=== PATIENT | female | born 1950 | race Caucasian/White ===

== ENCOUNTER 2020-07-05 14:54 | Inpatient (IN) | payer MEDICARE, BC ==
[~2020-07-05] VITALS: Ht 170.2 cm; Wt 66.2 kg
[2020-07-05] MEDS ORDERED: METOCLOPRAMIDE HCL 10 MG/2ML VIAL IV ONE (15:30)
[2020-07-05 15:36] LABS: BASOPHILS # (AUTO) 0.1 (0.0-0.1); BASOPHILS % 0.3 % (0.0-1.0); EOSINOPHILS # (AUTO) 0.3 (0.0-0.4); EOSINOPHILS % 1.6 % (0.0-6.0); HEMATOCRIT 27.7 % (34.2-44.1); HEMOGLOBIN 8.2 g/dL (12.0-16.0); LYMPHOCYTES # (AUTO) 1.6 (1.0-3.2); LYMPHOCYTES % 9.5 % (18.0-39.1); MEAN CORPUSCULAR HEMOGLOBIN 30.4 pg (28-32); MEAN CORPUSCULAR HGB CONC 29.6 g/dL (31-35); MEAN CORPUSCULAR VOLUME 102.6 fL (81-99); MONOCYTES # (AUTO) 1.9 (0.2-0.8); MONOCYTES % 11.7 % (4.4-11.3); NEUTROPHILS # (AUTO) 12.5 (2.1-6.9); NEUTROPHILS % 75.7 % (38.7-80.0); PLATELET COUNT 366 x10e3/uL (140-360)
[2020-07-05 16:15] LABS: ALBUMIN 1.9 g/dL (3.5-5.0); ALBUMIN/GLOBULIN RATIO 0.4 (0.8-2.0); ANION GAP 11.1 mmol/L (8-16); CALCIUM 8.2 mg/dL (8.4-10.2); CREATININE, SERUM 1.26 mg/dL (0.57-1.11); POTASSIUM 4.1 mmol/L (3.5-5.1)
[2020-07-05] MEDS: SODIUM CHLORIDE 0.9% 1000ML 1,000 ML IV SCH (16:25)
[2020-07-05] MEDS ORDERED: IOPAMIDOL 370 MG/ML 200 ML INFUS..BTL INJ ONE (16:36)
[2020-07-05] MEDS ORDERED: SODIUM CHLORIDE 0.9% 50ML 50 ML ONE ×2 (16:36→19:37)
[2020-07-05] MEDS ORDERED: AMIODARONE HCL200 MG (17:31)
[2020-07-05] MEDS ORDERED: ELIQUIS5 MG (17:31)
[2020-07-05] MEDS ORDERED: ASPIRIN EC81 MG PO (17:32)
[2020-07-05] MEDS ORDERED: LIPITOR20 MG PO (17:32)
[2020-07-05] MEDS ORDERED: EZETIMIBE10 MG (17:33)
[2020-07-05] MEDS ORDERED: CALCIUM CARBON300 MG (17:33)
[2020-07-05] MEDS ORDERED: SIMETHICONE80 MG PO (17:34)
[2020-07-05] MEDS ORDERED: FLOMAX0.4 MG PO (17:34)
[2020-07-05] MEDS ORDERED: METOPROLOL TART25 MG PO (17:34)
[2020-07-05] MEDS ORDERED: OMEGA 3 1,0001 EACH (17:35)
[2020-07-05] MEDS ORDERED: VALACYCLOVIR500 MG PO (17:35)
[2020-07-05 19:40] VITALS: BP 121/50
[2020-07-05 20:00] VITALS: BP 113/53
[2020-07-05] MEDS ORDERED: ULTRAM50 MG PO (20:45)
[2020-07-05] MEDS ORDERED: PROTONIX20 MG PO (20:45)
[2020-07-05] MEDS ORDERED: MAGNESIUM OXID400 MG PO (20:45)
[2020-07-05] MEDS ORDERED: COLCRYS0.6 MG PO (20:45)
[2020-07-05] MEDS ORDERED: PROMETHAZINE12.5 M1 PO (20:45)
[2020-07-05] MEDS ORDERED: DOCUSATE SODIU100 MG PO (20:45)
[2020-07-05] MEDS ORDERED: MELATONIN3 MG PO (20:45)
[2020-07-05] MEDS ORDERED: TRANSDERM-SCOP1 EACH TD (20:45)
[2020-07-05] MEDS ORDERED: ACETAMINOPHEN325 M1 PO (20:45)
[2020-07-05] MEDS ORDERED: DOXYCYCLINE HY100 MG PO (20:45)
[2020-07-05] MEDS ORDERED: ACETAMINOPHEN 325 MG TAB PO PRN (21:00)
[2020-07-05] MEDS ORDERED: ATORVASTATIN 20 MG TAB PO SCH (21:00)
[2020-07-05] MEDS ORDERED: SCOPOLAMINE 1.5 MG PATCH TD SCH (21:00)
[2020-07-05] MEDS ORDERED: DEXTROSE 5%/0.45% SOD CHL 1,000 ML IV ONE (22:00)
[2020-07-05] MEDS: MAGNESIUM OXIDE 400 MG TAB PO SCH (22:23)
[2020-07-05] MEDS: APIXABAN 5 MG TABLET PO SCH (22:23)
[2020-07-05] MEDS: MELATONIN 3 MG TAB PO SCH (22:23)
[2020-07-05] MEDS: METOCLOPRAMIDE HCL 10 MG/2ML VIAL IV SCH (22:23)
[2020-07-05] MEDS: SIMETHICONE 80 MG CHEW PO SCH (22:24)
[2020-07-05] MEDS: DOXYCYCLINE HYCLATE TABLET 100 MG TAB PO SCH (22:24)
[2020-07-06] VITALS (7 sets, daily range): BP systolic 97–117; BP diastolic 50–59
[2020-07-06 05:20] LABS: BASOPHILS # (AUTO) 0.1 (0.0-0.1); BASOPHILS % 0.4 % (0.0-1.0); EOSINOPHILS # (AUTO) 0.4 (0.0-0.4); EOSINOPHILS % 2.3 % (0.0-6.0); HEMATOCRIT 24.9 % (34.2-44.1); HEMOGLOBIN 7.5 g/dL (12.0-16.0); LYMPHOCYTES # (AUTO) 1.6 (1.0-3.2); LYMPHOCYTES % 10.5 % (18.0-39.1); MEAN CORPUSCULAR HEMOGLOBIN 30.2 pg (28-32); MEAN CORPUSCULAR HGB CONC 30.1 g/dL (31-35); MEAN CORPUSCULAR VOLUME 100.4 fL (81-99); MONOCYTES # (AUTO) 2.1 (0.2-0.8); MONOCYTES % 14.1 % (4.4-11.3); NEUTROPHILS # (AUTO) 10.7 (2.1-6.9); NEUTROPHILS % 71.3 % (38.7-80.0); PLATELET COUNT 331 x10e3/uL (140-360); RED BLOOD COUNT 2.48 x10e6/uL (3.6-5.1)
[2020-07-06 05:35] LABS: ALBUMIN 1.7 g/dL (3.5-5.0); ALBUMIN/GLOBULIN RATIO 0.4 (0.8-2.0); ANION GAP 9.1 mmol/L (8-16); CALCIUM 7.6 mg/dL (8.4-10.2); CREATININE, SERUM 1.12 mg/dL (0.57-1.11); MAGNESIUM 2.2 MG/DL (1.3-2.1); PHOSPHORUS 2.1 MG/DL (2.3-4.7); POTASSIUM 4.1 mmol/L (3.5-5.1)
[2020-07-06 06:20] LABS: CALCIUM IONIZED 1.1 mmol/L (1.09-1.30)
[2020-07-06] MEDS: SODIUM CHLORIDE 0.9% 1000ML 1,000 ML IV SCH ×2 (08:55→16:54)
[2020-07-06] MEDS: VALACYCLOVIR HCL 500 MG TAB PO SCH (08:57)
[2020-07-06] MEDS: DOXYCYCLINE HYCLATE TABLET 100 MG TAB PO SCH ×2 (08:58→20:44)
[2020-07-06] MEDS: DOCUSATE SODIUM 100 MG CAP PO SCH ×2 (08:58→16:54)
[2020-07-06] MEDS: ASPIRIN 81 MG ENTERIC COATED PO SCH (08:58)
[2020-07-06] MEDS: MAGNESIUM OXIDE 400 MG TAB PO SCH ×3 (08:58→20:44)
[2020-07-06] MEDS: AMIODARONE HCL 200 MG TAB PO SCH (08:58)
[2020-07-06] MEDS: SIMETHICONE 80 MG CHEW PO SCH ×3 (08:58→20:44)
[2020-07-06] MEDS: METOPROLOL TARTRATE 25 MG TAB PO SCH ×2 (08:59→16:54)
[2020-07-06] MEDS ORDERED: PANTOPRAZOLE SOD 40 MG TABEC PO SCH (09:00)
[2020-07-06] MEDS: COLCHICINE 0.6 MG TAB PO SCH (09:00)
[2020-07-06] MEDS: TAMSULOSIN HCL 0.4 MG CAP PO SCH (09:00)
[2020-07-06] MEDS: APIXABAN 5 MG TABLET PO SCH ×2 (09:00→20:44)
[2020-07-06] MEDS: EZETIMIBE 10 MG TAB PO SCH (09:00)
[2020-07-06] MEDS: METOCLOPRAMIDE HCL 10 MG/2ML VIAL IV SCH ×4 (09:01→20:44)
[2020-07-06 09:33] LABS: ANISOCYTOSIS SLIGHT; EOSINOPHILS % (MANUAL) 1 % (0-7); LYMPHOCYTES % (MANUAL) 14 % (19-48); MONOCYTES % (MANUAL) 8 % (3.4-9.0); NEUTROPHILS % (MANUAL) 76 % (40-74); PLATELET ESTIMATE ADEQUATE; PLATELET MORPHOLOGY COMMENT NORMAL; RBC MORPHOLOGY COMMENT NORMAL
[2020-07-06 15:11] LABS: CLARITY,URINE CLOUDY (CLEAR); COLOR,URINE YELLOW (YELLOW)
[2020-07-06 15:12] LABS: KETONES,URINE NEGATIVE (NEGATIVE); LEUKOCYTE ESTERASE ,URINE MODERATE (NEGATIVE); NITRITE,URINE NEGATIVE (NEGATIVE); PROTEIN,URINE DIPSTICK >=300 (NEGATIVE); URINE UROBILINOGEN 0.2 mg/dL (0.2 - 1)
[2020-07-06 15:17] LABS: BACTERIA,URINE MODERATE /HPF; RBC,URINE 21-50 /HPF (0-5); WBC,URINE (MAN) 21-50 /HPF (0-5)
[2020-07-06] MEDS ORDERED: LORAZEPAM INJ 2 MG/ML VIAL IV ONE (17:45)
[2020-07-06] MEDS: MELATONIN 3 MG TAB PO SCH (20:44)
[2020-07-06] MEDS: ATORVASTATIN 40 MG TAB PO SCH (20:44)
[2020-07-07] VITALS (8 sets, daily range): BP systolic 98–119; BP diastolic 48–62
[2020-07-07] MEDS ORDERED: PANTOPRAZOLE 40 MG 10ML VIAL IV STA (02:57)
[2020-07-07] MEDS ORDERED: PANTOPRAZOL 40MG/SOD CHL 0.9% 250 ML IV SCH (03:00)
[2020-07-07] MEDS: PANTOPRAZOL 40MG/SOD CHL 0.9% 50 ML IV SCH ×5 (03:48→23:24)
[2020-07-07 05:48] LABS: BASOPHILS # (AUTO) 0.1 (0.0-0.1); BASOPHILS % 0.5 % (0.0-1.0); EOSINOPHILS # (AUTO) 0.4 (0.0-0.4); EOSINOPHILS % 2.5 % (0.0-6.0); HEMATOCRIT 26.5 % (34.2-44.1); HEMOGLOBIN 7.7 g/dL (12.0-16.0); LYMPHOCYTES # (AUTO) 1.3 (1.0-3.2); LYMPHOCYTES % 8.9 % (18.0-39.1); MEAN CORPUSCULAR HEMOGLOBIN 29.8 pg (28-32); MEAN CORPUSCULAR HGB CONC 29.1 g/dL (31-35); MEAN CORPUSCULAR VOLUME 102.7 fL (81-99); MONOCYTES # (AUTO) 1.8 (0.2-0.8); NEUTROPHILS # (AUTO) 11.2 (2.1-6.9); NEUTROPHILS % 74.9 % (38.7-80.0); PLATELET COUNT 368 x10e3/uL (140-360); RED BLOOD COUNT 2.58 x10e6/uL (3.6-5.1); RED CELL DISTRIBUTION WIDTH 18.1 % (11.7-14.4)
[2020-07-07 05:56] LABS: CALCIUM IONIZED 1.1 mmol/L (1.09-1.30)
[2020-07-07] MEDS: METOCLOPRAMIDE HCL 10 MG/2ML VIAL IV SCH ×4 (06:00→23:24)
[2020-07-07 06:19] LABS: ALBUMIN 1.7 g/dL (3.5-5.0); ALBUMIN/GLOBULIN RATIO 0.4 (0.8-2.0); ANION GAP 11.3 mmol/L (8-16); CALCIUM 7.6 mg/dL (8.4-10.2); MAGNESIUM 2.2 MG/DL (1.3-2.1); POTASSIUM 4.3 mmol/L (3.5-5.1)
[2020-07-07 07:36] LABS: FERRITIN 4615.88 ng/mL (4.63-204.00)
[2020-07-07] MEDS: DOCUSATE SODIUM 100 MG CAP PO SCH ×2 (09:00→17:00)
[2020-07-07] MEDS: ASPIRIN 81 MG ENTERIC COATED PO SCH (09:23)
[2020-07-07] MEDS: COLCHICINE 0.6 MG TAB PO SCH (09:24)
[2020-07-07] MEDS: METOPROLOL TARTRATE 25 MG TAB PO SCH ×2 (09:25→17:34)
[2020-07-07] MEDS: APIXABAN 5 MG TABLET PO SCH ×2 (09:25→21:45)
[2020-07-07] MEDS: TAMSULOSIN HCL 0.4 MG CAP PO SCH (09:25)
[2020-07-07] MEDS: AMIODARONE HCL 200 MG TAB PO SCH (09:25)
[2020-07-07] MEDS: MAGNESIUM OXIDE 400 MG TAB PO SCH ×2 (09:25→17:34)
[2020-07-07] MEDS: DOXYCYCLINE HYCLATE TABLET 100 MG TAB PO SCH ×2 (09:26→21:45)
[2020-07-07] MEDS: EZETIMIBE 10 MG TAB PO SCH (09:26)
[2020-07-07] MEDS: VALACYCLOVIR HCL 500 MG TAB PO SCH (09:26)
[2020-07-07] MEDS: SIMETHICONE 80 MG CHEW PO SCH ×3 (09:26→21:45)
[2020-07-07] MEDS ORDERED: FUROSEMIDE INJ 10 MG/ML 4 ML VIAL IV ONE (20:00)
[2020-07-07] MEDS: MELATONIN 3 MG TAB PO SCH (21:45)
[2020-07-07] MEDS: ATORVASTATIN 40 MG TAB PO SCH (21:45)
[2020-07-07] MEDS ORDERED: CYANOCOBALAMIN INJ 1,000 MCG/ML VIAL IM ONE (23:00)
[2020-07-07] MEDS ORDERED: DIPHENOXYLATE/ATROPINE TAB PO ONE (23:15)
[2020-07-08] VITALS (8 sets, daily range): BP systolic 93–111; BP diastolic 46–71
[2020-07-08] MEDS: PANTOPRAZOL 40MG/SOD CHL 0.9% 50 ML IV SCH ×4 (04:30→19:15)
[2020-07-08] MEDS: METOCLOPRAMIDE HCL 10 MG/2ML VIAL IV SCH ×3 (05:45→17:42)
[2020-07-08 06:15] LABS: BASOPHILS # (AUTO) 0.1 (0.0-0.1); BASOPHILS % 0.4 % (0.0-1.0); EOSINOPHILS # (AUTO) 0.5 (0.0-0.4); EOSINOPHILS % 2.9 % (0.0-6.0); HEMATOCRIT 26.1 % (34.2-44.1); HEMOGLOBIN 7.6 g/dL (12.0-16.0); LYMPHOCYTES # (AUTO) 1.6 (1.0-3.2); LYMPHOCYTES % 9.6 % (18.0-39.1); MEAN CORPUSCULAR HEMOGLOBIN 30.2 pg (28-32); MEAN CORPUSCULAR HGB CONC 29.1 g/dL (31-35); MEAN CORPUSCULAR VOLUME 103.6 fL (81-99); MONOCYTES # (AUTO) 1.8 (0.2-0.8); MONOCYTES % 10.5 % (4.4-11.3); NEUTROPHILS # (AUTO) 12.8 (2.1-6.9); NEUTROPHILS % 75.2 % (38.7-80.0); PLATELET COUNT 363 x10e3/uL (140-360); RED BLOOD COUNT 2.52 x10e6/uL (3.6-5.1); RED CELL DISTRIBUTION WIDTH 17.8 % (11.7-14.4)
[2020-07-08 06:44] LABS: ALBUMIN 1.8 g/dL (3.5-5.0); ALBUMIN/GLOBULIN RATIO 0.4 (0.8-2.0); ANION GAP 11.8 mmol/L (8-16); CALCIUM 7.9 mg/dL (8.4-10.2); CREATININE, SERUM 1.13 mg/dL (0.57-1.11); POTASSIUM 3.8 mmol/L (3.5-5.1)
[2020-07-08 07:03] LABS: CHOL/HDL RATIO 4.8 (3.0-3.6)
[2020-07-08] MEDS: DOCUSATE SODIUM 100 MG CAP PO SCH ×2 (08:56→15:13)
[2020-07-08] MEDS: COLCHICINE 0.6 MG TAB PO SCH (10:35)
[2020-07-08] MEDS: ASPIRIN 81 MG ENTERIC COATED PO SCH (10:35)
[2020-07-08] MEDS: TAMSULOSIN HCL 0.4 MG CAP PO SCH (10:35)
[2020-07-08] MEDS: AMIODARONE HCL 200 MG TAB PO SCH (10:35)
[2020-07-08] MEDS: IRON SUCROSE 100 MG in SODIUM CHLORIDE 0.9% 100 ML 100 ML IV SCH (10:35)
[2020-07-08] MEDS: DOXYCYCLINE HYCLATE TABLET 100 MG TAB PO SCH ×2 (10:36→21:36)
[2020-07-08] MEDS: APIXABAN 5 MG TABLET PO SCH ×2 (10:36→21:36)
[2020-07-08] MEDS: SIMETHICONE 80 MG CHEW PO SCH ×3 (10:36→21:36)
[2020-07-08] MEDS: METOPROLOL TARTRATE 25 MG TAB PO SCH ×2 (10:36→17:42)
[2020-07-08] MEDS: EZETIMIBE 10 MG TAB PO SCH (10:36)
[2020-07-08] MEDS: VALACYCLOVIR HCL 500 MG TAB PO SCH (10:36)
[2020-07-08] MEDS: MAGNESIUM OXIDE 400 MG TAB PO SCH (10:36)
[2020-07-08] MEDS: CYANOCOBALAMIN INJ 1,000 MCG/ML VIAL IM SCH (14:06)
[2020-07-08] MEDS: MELATONIN 3 MG TAB PO SCH (21:36)
[2020-07-08] MEDS: ATORVASTATIN 40 MG TAB PO SCH (21:36)
[2020-07-09] VITALS (9 sets, daily range): BP systolic 100–115; BP diastolic 44–58
[2020-07-09] MEDS: PANTOPRAZOL 40MG/SOD CHL 0.9% 50 ML IV SCH ×5 (00:23→20:15)
[2020-07-09] MEDS: METOCLOPRAMIDE HCL 10 MG/2ML VIAL IV SCH ×4 (00:23→17:09)
[2020-07-09] MEDS ORDERED: MECLIZINE HCL 12.5 MG TAB PO ONE (00:30)
[2020-07-09 06:10] LABS: BASOPHILS # (AUTO) 0.1 (0.0-0.1); BASOPHILS % 0.4 % (0.0-1.0); EOSINOPHILS # (AUTO) 0.5 (0.0-0.4); EOSINOPHILS % 2.7 % (0.0-6.0); HEMOGLOBIN 7.6 g/dL (12.0-16.0); LYMPHOCYTES # (AUTO) 1.9 (1.0-3.2); MEAN CORPUSCULAR HEMOGLOBIN 30.5 pg (28-32); MEAN CORPUSCULAR HGB CONC 29.2 g/dL (31-35); MEAN CORPUSCULAR VOLUME 104.4 fL (81-99); MONOCYTES % 10.7 % (4.4-11.3); NEUTROPHILS # (AUTO) 13.9 (2.1-6.9); NEUTROPHILS % 74.9 % (38.7-80.0); PLATELET COUNT 349 x10e3/uL (140-360); RED BLOOD COUNT 2.49 x10e6/uL (3.6-5.1); RED CELL DISTRIBUTION WIDTH 17.7 % (11.7-14.4)
[2020-07-09 06:28] LABS: ALBUMIN 1.7 g/dL (3.5-5.0); ALBUMIN/GLOBULIN RATIO 0.4 (0.8-2.0); ANION GAP 9.8 mmol/L (8-16); CALCIUM 7.8 mg/dL (8.4-10.2); CREATININE, SERUM 1.09 mg/dL (0.57-1.11); POTASSIUM 3.8 mmol/L (3.5-5.1)
[2020-07-09] MEDS: IRON SUCROSE 100 MG in SODIUM CHLORIDE 0.9% 100 ML 100 ML IV SCH (08:57)
[2020-07-09] MEDS: COLCHICINE 0.6 MG TAB PO SCH (08:57)
[2020-07-09] MEDS: CYANOCOBALAMIN INJ 1,000 MCG/ML VIAL IM SCH (08:59)
[2020-07-09] MEDS: METOPROLOL TARTRATE 25 MG TAB PO SCH ×2 (09:00→17:00)
[2020-07-09] MEDS: DOCUSATE SODIUM 100 MG CAP PO SCH ×2 (09:00→17:00)
[2020-07-09] MEDS: VALACYCLOVIR HCL 500 MG TAB PO SCH (09:02)
[2020-07-09] MEDS: AMIODARONE HCL 200 MG TAB PO SCH (09:02)
[2020-07-09] MEDS: MAGNESIUM OXIDE 400 MG TAB PO SCH (09:02)
[2020-07-09] MEDS: DOXYCYCLINE HYCLATE TABLET 100 MG TAB PO SCH ×2 (09:02→20:53)
[2020-07-09] MEDS: ASPIRIN 81 MG ENTERIC COATED PO SCH (09:02)
[2020-07-09] MEDS: SIMETHICONE 80 MG CHEW PO SCH ×3 (09:02→20:53)
[2020-07-09] MEDS: MECLIZINE HCL 12.5 MG TAB PO SCH ×3 (09:02→20:52)
[2020-07-09] MEDS: APIXABAN 5 MG TABLET PO SCH ×2 (09:02→20:52)
[2020-07-09] MEDS: TAMSULOSIN HCL 0.4 MG CAP PO SCH (09:02)
[2020-07-09] MEDS: FLUCONAZOLE 100 MG TAB PO SCH (09:02)
[2020-07-09] MEDS: EZETIMIBE 10 MG TAB PO SCH (09:03)
[2020-07-09] MEDS ORDERED: FOLIC ACID 1 MG TAB PO ONE (10:15)
[2020-07-09] MEDS ORDERED: LORAZEPAM INJ 2 MG/ML VIAL IV ONE (10:45)
[2020-07-09] MEDS ORDERED: LORAZEPAM INJ 2 MG/ML VIAL IV PRN (11:30)
[2020-07-09] MEDS: MELATONIN 3 MG TAB PO SCH (20:53)
[2020-07-09] MEDS: ATORVASTATIN 40 MG TAB PO SCH (20:53)
[2020-07-09] MEDS ORDERED: CEFEPIME 1GM/NS 0.9% 50 ML 50 ML IV SCH (22:45)
[2020-07-10] VITALS (8 sets, daily range): BP systolic 108–128; BP diastolic 45–60
[2020-07-10] MEDS: PANTOPRAZOL 40MG/SOD CHL 0.9% 50 ML IV SCH ×4 (01:15→17:01)
[2020-07-10 05:54] LABS: BASOPHILS # (AUTO) 0.1 (0.0-0.1); BASOPHILS % 0.5 % (0.0-1.0); EOSINOPHILS # (AUTO) 0.5 (0.0-0.4); EOSINOPHILS % 2.9 % (0.0-6.0); HEMATOCRIT 24.6 % (34.2-44.1); HEMOGLOBIN 7.4 g/dL (12.0-16.0); LYMPHOCYTES % 10.9 % (18.0-39.1); MEAN CORPUSCULAR HEMOGLOBIN 30.7 pg (28-32); MEAN CORPUSCULAR HGB CONC 30.1 g/dL (31-35); MEAN CORPUSCULAR VOLUME 102.1 fL (81-99); MONOCYTES # (AUTO) 2.1 (0.2-0.8); MONOCYTES % 11.4 % (4.4-11.3); NEUTROPHILS % 72.4 % (38.7-80.0); PLATELET COUNT 358 x10e3/uL (140-360); RED BLOOD COUNT 2.41 x10e6/uL (3.6-5.1); RED CELL DISTRIBUTION WIDTH 17.7 % (11.7-14.4)
[2020-07-10] MEDS: METOCLOPRAMIDE HCL 10 MG/2ML VIAL IV SCH ×4 (06:00→17:01)
[2020-07-10 06:24] LABS: ALBUMIN 1.7 g/dL (3.5-5.0); ALBUMIN/GLOBULIN RATIO 0.4 (0.8-2.0); ANION GAP 7.9 mmol/L (8-16); CREATININE, SERUM 1.1 mg/dL (0.57-1.11); POTASSIUM 3.9 mmol/L (3.5-5.1)
[2020-07-10] MEDS: DOCUSATE SODIUM 100 MG CAP PO SCH ×2 (09:00→16:44)
[2020-07-10] MEDS: METOPROLOL TARTRATE 25 MG TAB PO SCH ×2 (09:00→16:44)
[2020-07-10 09:06] LABS: INR 1.32
[2020-07-10 09:07] LABS: PARTIAL THROMBOPLASTIN TIME 43.7 seconds (23.8-35.5)
[2020-07-10] MEDS: MAGNESIUM OXIDE 400 MG TAB PO SCH (09:13)
[2020-07-10] MEDS: EZETIMIBE 10 MG TAB PO SCH (09:13)
[2020-07-10] MEDS: SIMETHICONE 80 MG CHEW PO SCH ×3 (09:13→21:13)
[2020-07-10] MEDS: VALACYCLOVIR HCL 500 MG TAB PO SCH (09:13)
[2020-07-10] MEDS: FLUCONAZOLE 100 MG TAB PO SCH (09:14)
[2020-07-10] MEDS: FOLIC ACID 1 MG TAB PO SCH (09:14)
[2020-07-10] MEDS: ASPIRIN 81 MG ENTERIC COATED PO SCH (09:14)
[2020-07-10] MEDS: APIXABAN 5 MG TABLET PO SCH (09:14)
[2020-07-10] MEDS: TAMSULOSIN HCL 0.4 MG CAP PO SCH (09:14)
[2020-07-10] MEDS: MECLIZINE HCL 12.5 MG TAB PO SCH ×3 (09:14→21:13)
[2020-07-10] MEDS: AMIODARONE HCL 200 MG TAB PO SCH (09:14)
[2020-07-10] MEDS: CYANOCOBALAMIN INJ 1,000 MCG/ML VIAL IM SCH (09:17)
[2020-07-10] MEDS: IRON SUCROSE 100 MG in SODIUM CHLORIDE 0.9% 100 ML 100 ML IV SCH (09:26)
[2020-07-10] MEDS ORDERED: FUROSEMIDE INJ 10 MG/ML 4 ML VIAL IV NR (10:45)
[2020-07-10] MEDS: FLUCONAZOLE 200 MG/100 ML 100 ML IV SCH (11:32)
[2020-07-10 11:43] LABS: COLOR,URINE YELLOW (YELLOW)
[2020-07-10 11:44] LABS: CLARITY,URINE CLOUDY (CLEAR); KETONES,URINE NEGATIVE (NEGATIVE); LEUKOCYTE ESTERASE ,URINE LARGE (NEGATIVE); NITRITE,URINE NEGATIVE (NEGATIVE); PROTEIN,URINE DIPSTICK 2+ (NEGATIVE); URINE UROBILINOGEN 0.2 mg/dL (0.2 - 1)
[2020-07-10 11:45] LABS: BACTERIA,URINE RARE /HPF; EPITHELIAL CELLS,URINE FEW /LPF
[2020-07-10] MEDS: VANCOMYCIN 1GM/NS 250 ML 250 ML IV SCH ×2 (12:32→22:18)
[2020-07-10] MEDS: MEROPENEM 1GM 100 ML IV SCH ×2 (15:00→21:14)
[2020-07-10] MEDS ORDERED: SODIUM CHLORIDE 0.9% 250ML 250 ML ONE (15:13)
[2020-07-10] MEDS ORDERED: FUROSEMIDE INJ 10 MG/ML 4 ML VIAL IV ONE (19:00)
[2020-07-10] MEDS ORDERED: FUROSEMIDE INJ 10 MG/ML 4 ML VIAL IV SCH (21:00)
[2020-07-10] MEDS: MELATONIN 3 MG TAB PO SCH (21:13)
[2020-07-10] MEDS: FUROSEMIDE INJ 10 MG/ML 4 ML VIAL IV SCH (22:10)
[2020-07-10] MEDS: LEVALBUTEROL HCL SOLN NEBU 0.63 MG/3 ML NEB INH SCH (22:58)
[2020-07-10] MEDS: IPRATROPIUM BROMIDE 0.02% 2.5 ML NEB NEB SCH (22:58)
[2020-07-11] VITALS (8 sets, daily range): BP systolic 95–109; BP diastolic 48–60
[2020-07-11] MEDS: METOCLOPRAMIDE HCL 10 MG/2ML VIAL IV SCH ×2 (00:10→05:27)
[2020-07-11] MEDS: PANTOPRAZOL 40MG/SOD CHL 0.9% 50 ML IV SCH ×6 (00:33→22:37)
[2020-07-11] MEDS: IPRATROPIUM BROMIDE 0.02% 2.5 ML NEB NEB SCH ×4 (01:00→18:45)
[2020-07-11] MEDS: LEVALBUTEROL HCL SOLN NEBU 0.63 MG/3 ML NEB INH SCH ×4 (01:00→18:45)
[2020-07-11] MEDS: FUROSEMIDE INJ 10 MG/ML 4 ML VIAL IV SCH ×3 (05:27→21:33)
[2020-07-11] MEDS: MEROPENEM 1GM 100 ML IV SCH ×3 (05:27→21:33)
[2020-07-11 08:57] LABS: BASOPHILS # (AUTO) 0.1 (0.0-0.1); BASOPHILS % 0.6 % (0.0-1.0); EOSINOPHILS # (AUTO) 0.6 (0.0-0.4); EOSINOPHILS % 2.6 % (0.0-6.0); HEMATOCRIT 26.8 % (34.2-44.1); HEMOGLOBIN 8.1 g/dL (12.0-16.0); LYMPHOCYTES # (AUTO) 2.8 (1.0-3.2); LYMPHOCYTES % 12.7 % (18.0-39.1); MEAN CORPUSCULAR HEMOGLOBIN 30.5 pg (28-32); MEAN CORPUSCULAR HGB CONC 30.2 g/dL (31-35); MEAN CORPUSCULAR VOLUME 100.8 fL (81-99); MONOCYTES # (AUTO) 2.4 (0.2-0.8); MONOCYTES % 10.9 % (4.4-11.3); NEUTROPHILS # (AUTO) 15.5 (2.1-6.9); NEUTROPHILS % 71.2 % (38.7-80.0); PLATELET COUNT 401 x10e3/uL (140-360); RED BLOOD COUNT 2.66 x10e6/uL (3.6-5.1)
[2020-07-11] MEDS: DOCUSATE SODIUM 100 MG CAP PO SCH ×2 (09:00→16:49)
[2020-07-11] MEDS: METOPROLOL TARTRATE 25 MG TAB PO SCH ×2 (09:00→16:49)
[2020-07-11] MEDS: VALACYCLOVIR HCL 500 MG TAB PO SCH (09:10)
[2020-07-11] MEDS: MECLIZINE HCL 12.5 MG TAB PO SCH (09:10)
[2020-07-11] MEDS: FOLIC ACID 1 MG TAB PO SCH (09:10)
[2020-07-11] MEDS: MAGNESIUM OXIDE 400 MG TAB PO SCH (09:10)
[2020-07-11] MEDS: SIMETHICONE 80 MG CHEW PO SCH ×3 (09:10→21:33)
[2020-07-11] MEDS: TAMSULOSIN HCL 0.4 MG CAP PO SCH (09:10)
[2020-07-11] MEDS: CYANOCOBALAMIN INJ 1,000 MCG/ML VIAL IM SCH (09:10)
[2020-07-11 09:15] LABS: ALBUMIN 1.9 g/dL (3.5-5.0); ALBUMIN/GLOBULIN RATIO 0.4 (0.8-2.0); ANION GAP 16.5 mmol/L (8-16); CALCIUM 8.4 mg/dL (8.4-10.2); CREATININE, SERUM 1.35 mg/dL (0.57-1.11); POTASSIUM 3.5 mmol/L (3.5-5.1)
[2020-07-11] MEDS: FLUCONAZOLE 200 MG/100 ML 100 ML IV SCH (10:34)
[2020-07-11] MEDS ORDERED: POTASSIUM CHLORIDE 10MEQ EA PO NR (11:45)
[2020-07-11] MEDS ORDERED: LORAZEPAM 0.5 MG TAB PO PRN (11:45)
[2020-07-11] MEDS: MELATONIN 3 MG TAB PO SCH (21:33)
[2020-07-12] VITALS (8 sets, daily range): BP systolic 82–100; BP diastolic 47–59
[2020-07-12] MEDS: IPRATROPIUM BROMIDE 0.02% 2.5 ML NEB NEB SCH ×4 (00:50→19:50)
[2020-07-12] MEDS: LEVALBUTEROL HCL SOLN NEBU 0.63 MG/3 ML NEB INH SCH ×4 (00:50→19:50)
[2020-07-12] MEDS: MEROPENEM 1GM 100 ML IV SCH ×3 (05:15→21:00)
[2020-07-12] MEDS: FUROSEMIDE INJ 10 MG/ML 4 ML VIAL IV SCH (05:15)
[2020-07-12 05:59] LABS: BASOPHILS # (AUTO) 0.1 (0.0-0.1); BASOPHILS % 0.5 % (0.0-1.0); EOSINOPHILS # (AUTO) 0.5 (0.0-0.4); EOSINOPHILS % 2.7 % (0.0-6.0); HEMATOCRIT 23.1 % (34.2-44.1); HEMOGLOBIN 7.1 g/dL (12.0-16.0); LYMPHOCYTES # (AUTO) 2.3 (1.0-3.2); LYMPHOCYTES % 12.5 % (18.0-39.1); MEAN CORPUSCULAR HEMOGLOBIN 30.2 pg (28-32); MEAN CORPUSCULAR HGB CONC 30.7 g/dL (31-35); MEAN CORPUSCULAR VOLUME 98.3 fL (81-99); MONOCYTES % 10.5 % (4.4-11.3); NEUTROPHILS # (AUTO) 13.5 (2.1-6.9); NEUTROPHILS % 71.9 % (38.7-80.0); PLATELET COUNT 342 x10e3/uL (140-360); RED BLOOD COUNT 2.35 x10e6/uL (3.6-5.1); RED CELL DISTRIBUTION WIDTH 18.4 % (11.7-14.4)
[2020-07-12 06:31] LABS: ALBUMIN 1.6 g/dL (3.5-5.0); ALBUMIN/GLOBULIN RATIO 0.4 (0.8-2.0); ANION GAP 14.3 mmol/L (8-16); CALCIUM 7.4 mg/dL (8.4-10.2); CREATININE, SERUM 1.42 mg/dL (0.57-1.11); POTASSIUM 3.3 mmol/L (3.5-5.1)
[2020-07-12] MEDS: FOLIC ACID 1 MG TAB PO SCH (09:00)
[2020-07-12] MEDS: IRON SUCROSE 100 MG in SODIUM CHLORIDE 0.9% 100 ML 100 ML IV SCH (09:00)
[2020-07-12] MEDS ORDERED: VANCOMYCIN 1GM/NS 250 ML 250 ML IV SCH ×2 (09:00→10:30)
[2020-07-12] MEDS: CYANOCOBALAMIN 1,000 MCG TAB PO SCH (09:00)
[2020-07-12] MEDS: MAGNESIUM OXIDE 400 MG TAB PO SCH (09:00)
[2020-07-12] MEDS: SIMETHICONE 80 MG CHEW PO SCH ×3 (09:00→21:00)
[2020-07-12] MEDS: METOPROLOL TARTRATE 25 MG TAB PO SCH ×2 (09:00→17:00)
[2020-07-12] MEDS: VALACYCLOVIR HCL 500 MG TAB PO SCH (09:00)
[2020-07-12] MEDS: DOCUSATE SODIUM 100 MG CAP PO SCH ×2 (09:00→17:28)
[2020-07-12] MEDS: FLUCONAZOLE 200 MG/100 ML 100 ML IV SCH (10:45)
[2020-07-12 13:25] LABS: BASOPHILS # (AUTO) 0.1 (0.0-0.1); BASOPHILS % 0.5 % (0.0-1.0); EOSINOPHILS # (AUTO) 0.5 (0.0-0.4); EOSINOPHILS % 2.5 % (0.0-6.0); HEMOGLOBIN 7.4 g/dL (12.0-16.0); LYMPHOCYTES % 10.6 % (18.0-39.1); MEAN CORPUSCULAR HEMOGLOBIN 30.7 pg (28-32); MEAN CORPUSCULAR HGB CONC 30.8 g/dL (31-35); MEAN CORPUSCULAR VOLUME 99.6 fL (81-99); MONOCYTES # (AUTO) 1.8 (0.2-0.8); MONOCYTES % 9.3 % (4.4-11.3); NEUTROPHILS # (AUTO) 14.3 (2.1-6.9); NEUTROPHILS % 74.9 % (38.7-80.0); PLATELET COUNT 327 x10e3/uL (140-360); RED BLOOD COUNT 2.41 x10e6/uL (3.6-5.1); RED CELL DISTRIBUTION WIDTH 18.6 % (11.7-14.4)
[2020-07-12 15:45] LABS: BODY FLUID APPEARANCE TURBID; BODY FLUID COLOR RED; BODY FLUID TYPE PLEURAL
[2020-07-12 15:48] LABS: RBC,BODY FLUID 172102 cells/uL; WBC,BODY FLUID 1522 cells/uL
[2020-07-12 15:53] LABS: BASOPHILS,BODY FLUID 1 %; EOSINOPHILS,BODY FLUID 2 %; LYMPHOCYTES,BODY FLUID 66 %; MONO/MACROPHG,BODY FLUID 6 %; NEUTROPHILS,BODY FLUID 23 %; OTHER CELLS,BODY FLUID 2 %
[2020-07-12] MEDS: VANCOMYCIN HCL 1.25 GM in SODIUM CHLORIDE 0.9% 250ML 250 ML IV SCH (17:28)
[2020-07-12] MEDS: MELATONIN 3 MG TAB PO SCH (20:59)
[2020-07-13] VITALS (11 sets, daily range): BP systolic 96–120; BP diastolic 49–60
[2020-07-13] MEDS: LEVALBUTEROL HCL SOLN NEBU 0.63 MG/3 ML NEB INH SCH ×4 (00:55→19:55)
[2020-07-13] MEDS: IPRATROPIUM BROMIDE 0.02% 2.5 ML NEB NEB SCH ×4 (00:55→19:55)
[2020-07-13] MEDS: MEROPENEM 1GM 100 ML IV SCH ×3 (05:36→21:48)
[2020-07-13 06:17] LABS: BASOPHILS # (AUTO) 0.1 (0.0-0.1); BASOPHILS % 0.5 % (0.0-1.0); EOSINOPHILS # (AUTO) 0.7 (0.0-0.4); EOSINOPHILS % 3.9 % (0.0-6.0); LYMPHOCYTES # (AUTO) 2.3 (1.0-3.2); MEAN CORPUSCULAR HEMOGLOBIN 30.3 pg (28-32); MEAN CORPUSCULAR HGB CONC 30.2 g/dL (31-35); MEAN CORPUSCULAR VOLUME 100.5 fL (81-99); MONOCYTES # (AUTO) 1.8 (0.2-0.8); MONOCYTES % 10.2 % (4.4-11.3); NEUTROPHILS # (AUTO) 12.6 (2.1-6.9); NEUTROPHILS % 70.5 % (38.7-80.0); PLATELET COUNT 319 x10e3/uL (140-360); RED BLOOD COUNT 2.21 x10e6/uL (3.6-5.1); RED CELL DISTRIBUTION WIDTH 18.7 % (11.7-14.4)
[2020-07-13 06:30] LABS: HEMATOCRIT 22.2 % (34.2-44.1); HEMOGLOBIN 6.7 g/dL (12.0-16.0)
[2020-07-13 06:56] LABS: ALBUMIN 1.5 g/dL (3.5-5.0); ALBUMIN/GLOBULIN RATIO 0.4 (0.8-2.0); ANION GAP 13.9 mmol/L (8-16); CREATININE, SERUM 1.21 mg/dL (0.57-1.11)
[2020-07-13] MEDS ORDERED: SODIUM CHLORIDE 0.9% 250ML 250 ML IV ONE ×2 (06:58→16:45)
[2020-07-13 07:00] LABS: CALCIUM 6.9 mg/dL (8.4-10.2); POTASSIUM 2.9 mmol/L (3.5-5.1)
[2020-07-13] MEDS ORDERED: POTASSIUM CHLORIDE 20MEQ/100ML 200 ML IV ONE (07:30)
[2020-07-13] MEDS ORDERED: KCL 20 MEQ PACKET/ ORAL SOLN PO ONE (07:40)
[2020-07-13] MEDS ORDERED: CALCIUM GLUCONATE 10% INJ 4.65 MEQ in SODIUM CHLORIDE 0.9% 50ML 50 ML IV ONE (08:00)
[2020-07-13] MEDS: METOPROLOL TARTRATE 25 MG TAB PO SCH ×2 (09:00→17:16)
[2020-07-13] MEDS ORDERED: BISACODYL 10 MG SUPP PR ONE (09:00)
[2020-07-13] MEDS: SIMETHICONE 80 MG CHEW PO SCH ×3 (09:14→21:48)
[2020-07-13] MEDS: CYANOCOBALAMIN 1,000 MCG TAB PO SCH (09:14)
[2020-07-13] MEDS: MAGNESIUM OXIDE 400 MG TAB PO SCH (09:14)
[2020-07-13] MEDS: DOCUSATE SODIUM 100 MG CAP PO SCH ×2 (09:14→17:15)
[2020-07-13] MEDS: FOLIC ACID 1 MG TAB PO SCH (09:14)
[2020-07-13] MEDS: FUROSEMIDE INJ 10 MG/ML 4 ML VIAL IV SCH (09:15)
[2020-07-13] MEDS ORDERED: SODIUM CHLORIDE 0.9% 250ML 250 ML ONE ×4 (09:49→17:56)
[2020-07-13] MEDS: IRON SUCROSE 100 MG in SODIUM CHLORIDE 0.9% 100 ML 100 ML IV SCH (12:33)
[2020-07-13] MEDS: FLUCONAZOLE 200 MG/100 ML 100 ML IV SCH (12:33)
[2020-07-13] MEDS: VENLAFAXINE HCL 37.5 MG TAB PO SCH (12:33)
[2020-07-13] MEDS ORDERED: POLYETHYLENE GLYCOL 3350 17 GM PACK PO NR (13:45)
[2020-07-13] MEDS: VANCOMYCIN HCL 1.25 GM in SODIUM CHLORIDE 0.9% 250ML 250 ML IV SCH (17:00)
[2020-07-13] MEDS ORDERED: POTASSIUM CHLORIDE 20MEQ/100ML 100 ML IV ONE (20:45)
[2020-07-13] MEDS ORDERED: SODIUM CHLORIDE 0.9% 1000ML 1,000 ML ONE (21:33)
[2020-07-13] MEDS: MELATONIN 3 MG TAB PO SCH (21:48)
[2020-07-13 23:20] LABS: BASOPHILS # (AUTO) 0.1 (0.0-0.1); BASOPHILS % 0.5 % (0.0-1.0); EOSINOPHILS # (AUTO) 0.8 (0.0-0.4); EOSINOPHILS % 4.6 % (0.0-6.0); HEMATOCRIT 28.5 % (34.2-44.1); HEMOGLOBIN 8.9 g/dL (12.0-16.0); LYMPHOCYTES % 10.9 % (18.0-39.1); MEAN CORPUSCULAR HEMOGLOBIN 30.6 pg (28-32); MEAN CORPUSCULAR HGB CONC 31.2 g/dL (31-35); MEAN CORPUSCULAR VOLUME 97.9 fL (81-99); MONOCYTES # (AUTO) 1.9 (0.2-0.8); MONOCYTES % 10.4 % (4.4-11.3); NEUTROPHILS # (AUTO) 13.1 (2.1-6.9); NEUTROPHILS % 71.2 % (38.7-80.0); PLATELET COUNT 329 x10e3/uL (140-360); RED BLOOD COUNT 2.91 x10e6/uL (3.6-5.1); RED CELL DISTRIBUTION WIDTH 17.6 % (11.7-14.4)
[2020-07-13 23:36] LABS: ANION GAP 13.9 mmol/L (8-16); CALCIUM 8.3 mg/dL (8.4-10.2); CREATININE, SERUM 1.33 mg/dL (0.57-1.11); POTASSIUM 3.9 mmol/L (3.5-5.1)
[2020-07-14] VITALS (8 sets, daily range): BP systolic 95–121; BP diastolic 48–65
[2020-07-14] MEDS: IPRATROPIUM BROMIDE 0.02% 2.5 ML NEB NEB SCH ×4 (02:35→20:35)
[2020-07-14] MEDS: LEVALBUTEROL HCL SOLN NEBU 0.63 MG/3 ML NEB INH SCH ×4 (02:35→20:35)
[2020-07-14] MEDS: MEROPENEM 1GM 100 ML IV SCH ×3 (06:00→21:40)
[2020-07-14 06:20] LABS: BASOPHILS # (AUTO) 0.1 (0.0-0.1); BASOPHILS % 0.5 % (0.0-1.0); EOSINOPHILS # (AUTO) 0.9 (0.0-0.4); EOSINOPHILS % 5.2 % (0.0-6.0); HEMATOCRIT 28.4 % (34.2-44.1); HEMOGLOBIN 8.9 g/dL (12.0-16.0); LYMPHOCYTES # (AUTO) 2.1 (1.0-3.2); LYMPHOCYTES % 12.1 % (18.0-39.1); MEAN CORPUSCULAR HEMOGLOBIN 31.1 pg (28-32); MEAN CORPUSCULAR HGB CONC 31.3 g/dL (31-35); MEAN CORPUSCULAR VOLUME 99.3 fL (81-99); MONOCYTES # (AUTO) 1.9 (0.2-0.8); NEUTROPHILS # (AUTO) 12.1 (2.1-6.9); PLATELET COUNT 334 x10e3/uL (140-360); RED BLOOD COUNT 2.86 x10e6/uL (3.6-5.1); RED CELL DISTRIBUTION WIDTH 17.9 % (11.7-14.4)
[2020-07-14 06:25] LABS: CALCIUM IONIZED 1.1 mmol/L (1.09-1.30)
[2020-07-14 07:29] LABS: ALBUMIN 1.7 g/dL (3.5-5.0); ALBUMIN/GLOBULIN RATIO 0.3 (0.8-2.0); ANION GAP 14.8 mmol/L (8-16); CALCIUM 8.1 mg/dL (8.4-10.2); CREATININE, SERUM 1.32 mg/dL (0.57-1.11); POTASSIUM 3.8 mmol/L (3.5-5.1)
[2020-07-14] MEDS ORDERED: POLYETHYLENE GLYCOL 3350 17 GM PACK PO SCH (09:00)
[2020-07-14] MEDS: ONDANSETRON HCL INJ 2MG/ML 2ML 2 MG/ML VIAL IV PRN ×2 (09:00→14:20)
[2020-07-14] MEDS: DOCUSATE SODIUM 100 MG CAP PO SCH ×2 (09:00→17:39)
[2020-07-14] MEDS: FOLIC ACID 1 MG TAB PO SCH (09:20)
[2020-07-14] MEDS: VENLAFAXINE HCL 37.5 MG TAB PO SCH (09:20)
[2020-07-14] MEDS: FUROSEMIDE INJ 10 MG/ML 4 ML VIAL IV SCH (09:20)
[2020-07-14] MEDS: IRON SUCROSE 100 MG in SODIUM CHLORIDE 0.9% 100 ML 100 ML IV SCH (09:20)
[2020-07-14] MEDS: CYANOCOBALAMIN 1,000 MCG TAB PO SCH (09:21)
[2020-07-14] MEDS: MAGNESIUM OXIDE 400 MG TAB PO SCH (09:21)
[2020-07-14] MEDS: METOPROLOL TARTRATE 25 MG TAB PO SCH ×2 (09:21→17:00)
[2020-07-14] MEDS: SIMETHICONE 80 MG CHEW PO SCH ×3 (09:21→20:38)
[2020-07-14] MEDS: FLUCONAZOLE 200 MG/100 ML 100 ML IV SCH (10:46)
[2020-07-14] MEDS ORDERED: BISACODYL 10 MG SUPP PR PRN (12:15)
[2020-07-14] MEDS ORDERED: MINERAL OIL 132 ML BTL PR ONE (14:30)
[2020-07-14] MEDS: VANCOMYCIN HCL 1.25 GM in SODIUM CHLORIDE 0.9% 250ML 250 ML IV SCH (18:01)
[2020-07-14 18:34] LABS: EOSINOPHILS % (MANUAL) 4 % (0-7); LYMPHOCYTES % (MANUAL) 10 % (19-48); MONOCYTES % (MANUAL) 4 % (3.4-9.0); NEUTROPHILS % (MANUAL) 75 % (40-74); PLATELET ESTIMATE ADEQUATE; PLATELET MORPHOLOGY COMMENT NORMAL; RBC MORPHOLOGY COMMENT NORMAL
[2020-07-14] MEDS: MELATONIN 3 MG TAB PO SCH (20:38)
[2020-07-15] VITALS (8 sets, daily range): BP systolic 95–112; BP diastolic 39–60
[2020-07-15] MEDS: IPRATROPIUM BROMIDE 0.02% 2.5 ML NEB NEB SCH ×4 (03:00→19:50)
[2020-07-15] MEDS: LEVALBUTEROL HCL SOLN NEBU 0.63 MG/3 ML NEB INH SCH ×4 (03:00→19:50)
[2020-07-15 05:14] LABS: BASOPHILS # (AUTO) 0.1 (0.0-0.1); BASOPHILS % 0.6 % (0.0-1.0); EOSINOPHILS # (AUTO) 0.7 (0.0-0.4); EOSINOPHILS % 4.2 % (0.0-6.0); HEMATOCRIT 29.6 % (34.2-44.1); HEMOGLOBIN 9.1 g/dL (12.0-16.0); LYMPHOCYTES # (AUTO) 1.6 (1.0-3.2); LYMPHOCYTES % 10.1 % (18.0-39.1); MEAN CORPUSCULAR HEMOGLOBIN 31.2 pg (28-32); MEAN CORPUSCULAR HGB CONC 30.7 g/dL (31-35); MEAN CORPUSCULAR VOLUME 101.4 fL (81-99); MONOCYTES # (AUTO) 1.9 (0.2-0.8); MONOCYTES % 11.7 % (4.4-11.3); NEUTROPHILS # (AUTO) 11.5 (2.1-6.9); NEUTROPHILS % 71.3 % (38.7-80.0); PLATELET COUNT 342 x10e3/uL (140-360); RED BLOOD COUNT 2.92 x10e6/uL (3.6-5.1)
[2020-07-15 05:39] LABS: ALBUMIN 1.9 g/dL (3.5-5.0); ALBUMIN/GLOBULIN RATIO 0.4 (0.8-2.0); ANION GAP 14.5 mmol/L (8-16); CALCIUM 8.4 mg/dL (8.4-10.2); CREATININE, SERUM 1.29 mg/dL (0.57-1.11); MAGNESIUM 2.3 MG/DL (1.3-2.1); POTASSIUM 3.5 mmol/L (3.5-5.1)
[2020-07-15] MEDS: MEROPENEM 1GM 100 ML IV SCH (06:00)
[2020-07-15 06:10] LABS: CALCIUM IONIZED 1.1 mmol/L (1.09-1.30)
[2020-07-15] MEDS: METOPROLOL TARTRATE 25 MG TAB PO SCH ×2 (09:00→17:00)
[2020-07-15] MEDS: DOCUSATE SODIUM 100 MG CAP PO SCH ×2 (09:53→17:13)
[2020-07-15] MEDS: FOLIC ACID 1 MG TAB PO SCH (09:53)
[2020-07-15] MEDS: FUROSEMIDE INJ 10 MG/ML 4 ML VIAL IV SCH (09:53)
[2020-07-15] MEDS: MAGNESIUM OXIDE 400 MG TAB PO SCH (09:54)
[2020-07-15] MEDS: FLUCONAZOLE 200 MG/100 ML 100 ML IV SCH (09:55)
[2020-07-15] MEDS: POLYETHYLENE GLYCOL 3350 17 GM PACK PO SCH ×2 (09:55→17:13)
[2020-07-15] MEDS: SIMETHICONE 80 MG CHEW PO SCH ×3 (09:55→21:13)
[2020-07-15] MEDS: CYANOCOBALAMIN 1,000 MCG TAB PO SCH (09:55)
[2020-07-15] MEDS: PANTOPRAZOLE 40 MG 10ML VIAL IV SCH ×2 (11:04→17:00)
[2020-07-15] MEDS: IRON SUCROSE 100 MG in SODIUM CHLORIDE 0.9% 100 ML 100 ML IV SCH (11:04)
[2020-07-15] MEDS: MELATONIN 3 MG TAB PO SCH (21:13)
[2020-07-16] VITALS (7 sets, daily range): BP systolic 100–114; BP diastolic 49–61
[2020-07-16] MEDS: IPRATROPIUM BROMIDE 0.02% 2.5 ML NEB NEB SCH ×4 (00:47→19:36)
[2020-07-16] MEDS: LEVALBUTEROL HCL SOLN NEBU 0.63 MG/3 ML NEB INH SCH ×4 (00:47→19:36)
[2020-07-16 06:12] LABS: BASOPHILS # (AUTO) 0.1 (0.0-0.1); BASOPHILS % 0.7 % (0.0-1.0); EOSINOPHILS # (AUTO) 0.8 (0.0-0.4); EOSINOPHILS % 5.8 % (0.0-6.0); HEMATOCRIT 30.6 % (34.2-44.1); HEMOGLOBIN 9.3 g/dL (12.0-16.0); LYMPHOCYTES # (AUTO) 1.9 (1.0-3.2); LYMPHOCYTES % 14.2 % (18.0-39.1); MEAN CORPUSCULAR HEMOGLOBIN 31.1 pg (28-32); MEAN CORPUSCULAR HGB CONC 30.4 g/dL (31-35); MEAN CORPUSCULAR VOLUME 102.3 fL (81-99); MONOCYTES # (AUTO) 1.7 (0.2-0.8); MONOCYTES % 12.1 % (4.4-11.3); NEUTROPHILS # (AUTO) 8.9 (2.1-6.9); NEUTROPHILS % 65.3 % (38.7-80.0); PLATELET COUNT 392 x10e3/uL (140-360); RED BLOOD COUNT 2.99 x10e6/uL (3.6-5.1); RED CELL DISTRIBUTION WIDTH 18.1 % (11.7-14.4)
[2020-07-16 06:40] LABS: CALCIUM IONIZED 1.1 mmol/L (1.09-1.30)
[2020-07-16 06:49] LABS: ALBUMIN 1.9 g/dL (3.5-5.0); ALBUMIN/GLOBULIN RATIO 0.4 (0.8-2.0); ANION GAP 12.5 mmol/L (8-16); CALCIUM 8.2 mg/dL (8.4-10.2); CREATININE, SERUM 1.19 mg/dL (0.57-1.11); MAGNESIUM 2.4 MG/DL (1.3-2.1); POTASSIUM 3.5 mmol/L (3.5-5.1)
[2020-07-16] MEDS: FOLIC ACID 1 MG TAB PO SCH (09:41)
[2020-07-16] MEDS: DOCUSATE SODIUM 100 MG CAP PO SCH ×2 (09:41→16:47)
[2020-07-16] MEDS: MAGNESIUM OXIDE 400 MG TAB PO SCH (09:41)
[2020-07-16] MEDS: SIMETHICONE 80 MG CHEW PO SCH ×3 (09:42→22:11)
[2020-07-16] MEDS: CYANOCOBALAMIN 1,000 MCG TAB PO SCH (09:42)
[2020-07-16] MEDS: METOPROLOL TARTRATE 25 MG TAB PO SCH ×2 (09:45→21:00)
[2020-07-16] MEDS: PANTOPRAZOLE 40 MG 10ML VIAL IV SCH ×2 (09:48→16:47)
[2020-07-16] MEDS: POLYETHYLENE GLYCOL 3350 17 GM PACK PO SCH ×2 (09:48→17:40)
[2020-07-16] MEDS: FUROSEMIDE INJ 10 MG/ML 2 ML VIAL IV SCH (10:00)
[2020-07-16] MEDS ORDERED: POTASSIUM CHLORIDE 20 MEQ TAB CR PO NR (15:15)
[2020-07-16] MEDS ORDERED: OYST-CAL-D 500MG TABLET PO NR (15:15)
[2020-07-16 15:30] LABS: AMYLASE 19 U/L (25-125); LIPASE 4 U/L (8-78)
[2020-07-16] MEDS: MELATONIN 3 MG TAB PO SCH (22:11)
[2020-07-17] VITALS (10 sets, daily range): BP systolic 91–109; BP diastolic 46–61
[2020-07-17] MEDS: IPRATROPIUM BROMIDE 0.02% 2.5 ML NEB NEB SCH ×4 (00:28→21:00)
[2020-07-17] MEDS: LEVALBUTEROL HCL SOLN NEBU 0.63 MG/3 ML NEB INH SCH ×4 (00:28→21:00)
[2020-07-17 06:25] LABS: BASOPHILS # (AUTO) 0.1 (0.0-0.1); BASOPHILS % 0.8 % (0.0-1.0); EOSINOPHILS # (AUTO) 0.7 (0.0-0.4); EOSINOPHILS % 5.5 % (0.0-6.0); HEMATOCRIT 30.8 % (34.2-44.1); HEMOGLOBIN 9.4 g/dL (12.0-16.0); MEAN CORPUSCULAR HEMOGLOBIN 30.7 pg (28-32); MEAN CORPUSCULAR HGB CONC 30.5 g/dL (31-35); MEAN CORPUSCULAR VOLUME 100.7 fL (81-99); MONOCYTES # (AUTO) 1.6 (0.2-0.8); MONOCYTES % 12.9 % (4.4-11.3); NEUTROPHILS # (AUTO) 7.8 (2.1-6.9); NEUTROPHILS % 62.7 % (38.7-80.0); PLATELET COUNT 382 x10e3/uL (140-360); RED BLOOD COUNT 3.06 x10e6/uL (3.6-5.1); RED CELL DISTRIBUTION WIDTH 18.6 % (11.7-14.4)
[2020-07-17 06:57] LABS: ALBUMIN 1.9 g/dL (3.5-5.0); ALBUMIN/GLOBULIN RATIO 0.4 (0.8-2.0); ANION GAP 11.2 mmol/L (8-16); CALCIUM 8.2 mg/dL (8.4-10.2); CREATININE, SERUM 1.17 mg/dL (0.57-1.11); POTASSIUM 4.2 mmol/L (3.5-5.1)
[2020-07-17] MEDS: MAGNESIUM OXIDE 400 MG TAB PO SCH (09:00)
[2020-07-17] MEDS: SIMETHICONE 80 MG CHEW PO SCH ×3 (09:53→21:22)
[2020-07-17] MEDS: CYANOCOBALAMIN 1,000 MCG TAB PO SCH (09:53)
[2020-07-17] MEDS: FOLIC ACID 1 MG TAB PO SCH (09:54)
[2020-07-17] MEDS: DOCUSATE SODIUM 100 MG CAP PO SCH ×3 (09:54→17:00)
[2020-07-17] MEDS: POLYETHYLENE GLYCOL 3350 17 GM PACK PO SCH (10:00)
[2020-07-17] MEDS: PANTOPRAZOLE 40 MG 10ML VIAL IV SCH ×2 (10:00→16:56)
[2020-07-17] MEDS: METOPROLOL TARTRATE 25 MG TAB PO SCH ×2 (12:00→21:00)
[2020-07-17] MEDS: FUROSEMIDE INJ 10 MG/ML 2 ML VIAL IV SCH (12:34)
[2020-07-17] MEDS ORDERED: POLYETHYLENE GLYCOL 3350 17 GM PACK PO PRN (15:45)
[2020-07-17] MEDS: MELATONIN 3 MG TAB PO SCH (21:22)
[2020-07-18] VITALS (7 sets, daily range): BP systolic 100–116; BP diastolic 46–62
[2020-07-18] MEDS: IPRATROPIUM BROMIDE 0.02% 2.5 ML NEB NEB SCH ×4 (02:40→19:45)
[2020-07-18] MEDS: LEVALBUTEROL HCL SOLN NEBU 0.63 MG/3 ML NEB INH SCH ×4 (02:40→19:45)
[2020-07-18 06:23] LABS: BASOPHILS # (AUTO) 0.1 (0.0-0.1); BASOPHILS % 0.7 % (0.0-1.0); EOSINOPHILS # (AUTO) 0.6 (0.0-0.4); EOSINOPHILS % 4.5 % (0.0-6.0); HEMATOCRIT 30.6 % (34.2-44.1); HEMOGLOBIN 9.4 g/dL (12.0-16.0); LYMPHOCYTES # (AUTO) 1.7 (1.0-3.2); LYMPHOCYTES % 12.4 % (18.0-39.1); MEAN CORPUSCULAR HEMOGLOBIN 31.2 pg (28-32); MEAN CORPUSCULAR HGB CONC 30.7 g/dL (31-35); MEAN CORPUSCULAR VOLUME 101.7 fL (81-99); MONOCYTES # (AUTO) 1.4 (0.2-0.8); MONOCYTES % 10.1 % (4.4-11.3); NEUTROPHILS # (AUTO) 9.4 (2.1-6.9); NEUTROPHILS % 70.1 % (38.7-80.0); PLATELET COUNT 384 x10e3/uL (140-360); RED BLOOD COUNT 3.01 x10e6/uL (3.6-5.1); RED CELL DISTRIBUTION WIDTH 18.7 % (11.7-14.4)
[2020-07-18 06:42] LABS: ALBUMIN 1.9 g/dL (3.5-5.0); ALBUMIN/GLOBULIN RATIO 0.4 (0.8-2.0); ANION GAP 11.9 mmol/L (8-16); CALCIUM 8.3 mg/dL (8.4-10.2); CREATININE, SERUM 1.2 mg/dL (0.57-1.11); POTASSIUM 3.9 mmol/L (3.5-5.1)
[2020-07-18] MEDS: CYANOCOBALAMIN 1,000 MCG TAB PO SCH (08:03)
[2020-07-18] MEDS: PANTOPRAZOLE 40 MG 10ML VIAL IV SCH ×2 (08:03→17:36)
[2020-07-18] MEDS: FOLIC ACID 1 MG TAB PO SCH (08:03)
[2020-07-18] MEDS: DOCUSATE SODIUM 100 MG CAP PO SCH ×2 (08:03→17:36)
[2020-07-18] MEDS: SIMETHICONE 80 MG CHEW PO SCH ×3 (08:03→21:39)
[2020-07-18] MEDS ORDERED: ACETAMINOPHEN 325 MG TAB PO PRN (09:30)
[2020-07-18] MEDS: METOPROLOL TARTRATE 25 MG TAB PO SCH ×2 (10:23→21:00)
[2020-07-18] MEDS: FUROSEMIDE INJ 10 MG/ML 2 ML VIAL IV SCH (10:23)
[2020-07-18] MEDS: MELATONIN 3 MG TAB PO SCH (21:39)
[2020-07-19] VITALS: BP 108/63
[2020-07-19] MEDS: IPRATROPIUM BROMIDE 0.02% 2.5 ML NEB NEB SCH ×4 (00:53→20:22)
[2020-07-19] MEDS: LEVALBUTEROL HCL SOLN NEBU 0.63 MG/3 ML NEB INH SCH ×4 (00:53→20:22)
[2020-07-19 06:21] LABS: BASOPHILS # (AUTO) 0.1 (0.0-0.1); BASOPHILS % 0.8 % (0.0-1.0); EOSINOPHILS # (AUTO) 0.7 (0.0-0.4); EOSINOPHILS % 6.6 % (0.0-6.0); HEMATOCRIT 29.8 % (34.2-44.1); HEMOGLOBIN 9.1 g/dL (12.0-16.0); LYMPHOCYTES # (AUTO) 1.9 (1.0-3.2); LYMPHOCYTES % 17.8 % (18.0-39.1); MEAN CORPUSCULAR HEMOGLOBIN 30.7 pg (28-32); MEAN CORPUSCULAR HGB CONC 30.5 g/dL (31-35); MEAN CORPUSCULAR VOLUME 100.7 fL (81-99); MONOCYTES # (AUTO) 1.3 (0.2-0.8); MONOCYTES % 12.3 % (4.4-11.3); NEUTROPHILS # (AUTO) 6.3 (2.1-6.9); NEUTROPHILS % 60.4 % (38.7-80.0); PLATELET COUNT 393 x10e3/uL (140-360); RED BLOOD COUNT 2.96 x10e6/uL (3.6-5.1); RED CELL DISTRIBUTION WIDTH 18.6 % (11.7-14.4)
[2020-07-19 06:32] LABS: ALBUMIN 1.9 g/dL (3.5-5.0); ALBUMIN/GLOBULIN RATIO 0.4 (0.8-2.0); ANION GAP 12.1 mmol/L (8-16); CALCIUM 8.4 mg/dL (8.4-10.2); CREATININE, SERUM 1.1 mg/dL (0.57-1.11); POTASSIUM 4.1 mmol/L (3.5-5.1)
[2020-07-19 08:19] VITALS: BP 110/62
[2020-07-19 08:54] VITALS: BP 110/62
[2020-07-19] MEDS: CYANOCOBALAMIN 1,000 MCG TAB PO SCH (09:00)
[2020-07-19] MEDS: DOCUSATE SODIUM 100 MG CAP PO SCH ×2 (09:00→17:37)
[2020-07-19] MEDS: METOPROLOL TARTRATE 25 MG TAB PO SCH ×3 (09:00→21:00)
[2020-07-19] MEDS: PANTOPRAZOLE 40 MG 10ML VIAL IV SCH ×2 (09:00→17:37)
[2020-07-19] MEDS: SIMETHICONE 80 MG CHEW PO SCH ×3 (09:00→20:48)
[2020-07-19] MEDS: FOLIC ACID 1 MG TAB PO SCH (09:00)
[2020-07-19] MEDS: FUROSEMIDE INJ 10 MG/ML 2 ML VIAL IV SCH (09:49)
[2020-07-19] MEDS ORDERED: MORPHINE SULFATE INJ 4 MG/ML INJ 1ML ONE (12:19)
[2020-07-19 16:03] VITALS: BP 111/59
[2020-07-19 20:00] VITALS: BP 120/62
[2020-07-19 20:21] VITALS: BP 120/62
[2020-07-19] MEDS: MELATONIN 3 MG TAB PO SCH (20:48)
[2020-07-20] VITALS (8 sets, daily range): BP systolic 97–126; BP diastolic 55–63
[2020-07-20] MEDS: LEVALBUTEROL HCL SOLN NEBU 0.63 MG/3 ML NEB INH SCH ×4 (01:00→20:10)
[2020-07-20] MEDS: IPRATROPIUM BROMIDE 0.02% 2.5 ML NEB NEB SCH ×4 (01:00→20:10)
[2020-07-20 06:13] LABS: BASOPHILS # (AUTO) 0.1 (0.0-0.1); BASOPHILS % 1.1 % (0.0-1.0); EOSINOPHILS # (AUTO) 0.5 (0.0-0.4); EOSINOPHILS % 5.2 % (0.0-6.0); HEMOGLOBIN 9.5 g/dL (12.0-16.0); LYMPHOCYTES # (AUTO) 1.7 (1.0-3.2); LYMPHOCYTES % 16.5 % (18.0-39.1); MEAN CORPUSCULAR HEMOGLOBIN 31.5 pg (28-32); MEAN CORPUSCULAR HGB CONC 30.6 g/dL (31-35); MEAN CORPUSCULAR VOLUME 102.6 fL (81-99); MONOCYTES # (AUTO) 1.2 (0.2-0.8); NEUTROPHILS # (AUTO) 6.5 (2.1-6.9); PLATELET COUNT 418 x10e3/uL (140-360); RED BLOOD COUNT 3.02 x10e6/uL (3.6-5.1); RED CELL DISTRIBUTION WIDTH 18.4 % (11.7-14.4)
[2020-07-20 06:40] LABS: ALBUMIN/GLOBULIN RATIO 0.4 (0.8-2.0); ANION GAP 11.4 mmol/L (8-16); CALCIUM 8.2 mg/dL (8.4-10.2); CREATININE, SERUM 1.16 mg/dL (0.57-1.11); POTASSIUM 4.4 mmol/L (3.5-5.1)
[2020-07-20] MEDS ORDERED: FUROSEMIDE INJ 10 MG/ML 2 ML VIAL IV SCH (09:00)
[2020-07-20] MEDS: PANTOPRAZOLE 40 MG 10ML VIAL IV SCH ×2 (09:26→18:03)
[2020-07-20] MEDS: DOCUSATE SODIUM 100 MG CAP PO SCH ×2 (09:26→18:03)
[2020-07-20] MEDS: FOLIC ACID 1 MG TAB PO SCH (09:26)
[2020-07-20] MEDS: CYANOCOBALAMIN 1,000 MCG TAB PO SCH (09:27)
[2020-07-20] MEDS: SIMETHICONE 80 MG CHEW PO SCH ×3 (09:27→20:34)
[2020-07-20] MEDS: METOPROLOL TARTRATE 25 MG TAB PO SCH ×2 (09:27→20:33)
[2020-07-20] MEDS: MELATONIN 3 MG TAB PO SCH (20:33)
[2020-07-21] VITALS: BP 107/56
[2020-07-21] MEDS: IPRATROPIUM BROMIDE 0.02% 2.5 ML NEB NEB SCH ×3 (00:56→13:02)
[2020-07-21] MEDS: LEVALBUTEROL HCL SOLN NEBU 0.63 MG/3 ML NEB INH SCH ×3 (00:56→13:02)
[2020-07-21 04:00] VITALS: BP 99/57
[2020-07-21 06:58] LABS: BASOPHILS # (AUTO) 0.1 (0.0-0.1); BASOPHILS % 0.9 % (0.0-1.0); EOSINOPHILS # (AUTO) 0.7 (0.0-0.4); EOSINOPHILS % 6.6 % (0.0-6.0); HEMATOCRIT 29.8 % (34.2-44.1); HEMOGLOBIN 9.2 g/dL (12.0-16.0); LYMPHOCYTES # (AUTO) 2.1 (1.0-3.2); LYMPHOCYTES % 20.8 % (18.0-39.1); MEAN CORPUSCULAR HEMOGLOBIN 31.1 pg (28-32); MEAN CORPUSCULAR HGB CONC 30.9 g/dL (31-35); MEAN CORPUSCULAR VOLUME 100.7 fL (81-99); MONOCYTES # (AUTO) 1.1 (0.2-0.8); MONOCYTES % 11.5 % (4.4-11.3); NEUTROPHILS # (AUTO) 5.8 (2.1-6.9); NEUTROPHILS % 58.7 % (38.7-80.0); PLATELET COUNT 418 x10e3/uL (140-360); RED BLOOD COUNT 2.96 x10e6/uL (3.6-5.1)
[2020-07-21 07:35] LABS: ALBUMIN/GLOBULIN RATIO 0.4 (0.8-2.0); ANION GAP 11.7 mmol/L (8-16); CALCIUM 7.9 mg/dL (8.4-10.2); CREATININE, SERUM 1.13 mg/dL (0.57-1.11); POTASSIUM 3.7 mmol/L (3.5-5.1)
[2020-07-21 08:00] VITALS: BP 123/54
[2020-07-21 08:52] VITALS: BP 123/54
[2020-07-21] MEDS ORDERED: SODIUM CHLORIDE 0.9% 250ML 250 ML IV ONE (09:15)
[2020-07-21] MEDS: PANTOPRAZOLE 40 MG 10ML VIAL IV SCH (09:29)
[2020-07-21] MEDS: DOCUSATE SODIUM 100 MG CAP PO SCH ×2 (09:29→16:20)
[2020-07-21] MEDS: CYANOCOBALAMIN 1,000 MCG TAB PO SCH (09:30)
[2020-07-21] MEDS: FOLIC ACID 1 MG TAB PO SCH (09:30)
[2020-07-21] MEDS: SIMETHICONE 80 MG CHEW PO SCH ×2 (09:30→15:33)
[2020-07-21] MEDS: METOPROLOL TARTRATE 25 MG TAB PO SCH (09:38)
[2020-07-21 09:45] VITALS: BP 123/54
[2020-07-21 12:21] VITALS: BP 108/56
[2020-07-21] MEDS ORDERED: ONDANSETRON HCL 4 MG ORAL DISINTEGRATING TAB PO PRN (13:30)
[2020-07-21] MEDS ORDERED: PANTOPRAZOLE SOD 40 MG TABEC PO SCH (16:30)
[2020-07-22] MEDS ORDERED: FUROSEMIDE 40 MG TAB PO SCH (09:00)
== END 2020-07-21 16:28 | DRG 871 ==
LOC: ER 14:56 → ERHOLD 16:15 → MED/SURG3 18:00 → OBSVTOIN 07-06 10:50
PROVIDERS: ADMIT Internal Medicine; ATTEND Internal Medicine
PROC: 0W9B3ZZ Drainage of Left Pleural Cavity, Percutaneous Approach (ICD-10-PCS; principal; 2020-07-12)
PROC: 30233N1 Transfusion of Nonautologous Red Blood Cells into Peripheral Vein, Percutaneous Approach (ICD-10-PCS; 2020-07-13)
DX: A41.9 Sepsis, unspecified organism (principal); J96.01 Acute respiratory failure with hypoxia; J69.0 Pneumonitis due to inhalation of food and vomit; I50.33 Acute on chronic diastolic (congestive) heart failure; J90 Pleural effusion, not elsewhere classified; N17.9 Acute kidney failure, unspecified; B37.49 Other urogenital candidiasis; E44.0 Moderate protein-calorie malnutrition; I13.0 Hypertensive heart and chronic kidney disease with heart failure and stage 1 through stage 4 chronic kidney disease, or unspecified chronic kidney disease; E86.0 Dehydration; D50.9 Iron deficiency anemia, unspecified; Z85.6 Personal history of leukemia; K81.9 Cholecystitis, unspecified; I25.2 Old myocardial infarction; K74.60 Unspecified cirrhosis of liver; I48.91 Unspecified atrial fibrillation; I25.10 Atherosclerotic heart disease of native coronary artery without angina pectoris; Z95.1 Presence of aortocoronary bypass graft; Z68.22 Body mass index [BMI] 22.0-22.9, adult; F43.23 Adjustment disorder with mixed anxiety and depressed mood; E11.22 Type 2 diabetes mellitus with diabetic chronic kidney disease; N18.30 Chronic kidney disease, stage 3 unspecified; D63.8 Anemia in other chronic diseases classified elsewhere; K59.00 Constipation, unspecified; D50.0 Iron deficiency anemia secondary to blood loss (chronic); Z20.822 Contact with and (suspected) exposure to COVID-19
CPT/HCPCS: 32555; 36415; 71045; 71250; 74018; 74177; 74230; 74470; 76705; 76770; 78227; 80048; 80053; 80061; 80202; 81001; 82150; 82270; 82570; 82607; 82728; 82746; 82948; 82977; 83540; 83605; 83615; 83630; 83690; 83735; 83880; 83993; 84080; 84100; 84157; 84466; 85025; 85045; 85384; 85610; 85730; 86850; 86900; 86920; 87040; 87045; 87070; 87086; 87177; 87205; 89051; 93005; 93306; 93971; 94640; 96361; 96367; 97139; 99251; 99284; A9537; G0378; J0610; J0692; J1450; J1756; J1940; J2060; J2270; J2405; J2765; J3370; J3420; J3480; J7030; J7050; P9016; Q9967; U0002

== ENCOUNTER → 2021-03-22 | Outpatient (CLI) | payer BC, MEDICARE ==
[~2021-03-22] MED LIST: ACETAMINOPHEN325 M1 PO; AMIODARONE HCL200 MG; ASPIRIN EC81 MG PO; CALCIUM CARBON300 MG; COLCRYS0.6 MG PO; DOCUSATE SODIU100 MG PO; DOXYCYCLINE HY100 MG PO; ELIQUIS5 MG; EZETIMIBE10 MG; FLOMAX0.4 MG PO; LIPITOR20 MG PO; MAGNESIUM OXID400 MG PO; MELATONIN3 MG PO; METOPROLOL TART25 MG PO; OMEGA 3 1,0001 EACH; PROMETHAZINE12.5 M1 PO; PROTONIX20 MG PO; SIMETHICONE80 MG PO; TRANSDERM-SCOP1 EACH TD; ULTRAM50 MG PO; VALACYCLOVIR500 MG PO
[2021-03-22 14:04] LABS: BASOPHILS # (AUTO) 0.1 (0.0-0.1); BASOPHILS % 0.7 % (0.0-1.0); EOSINOPHILS # (AUTO) 0.3 (0.0-0.4); EOSINOPHILS % 2.9 % (0.0-6.0); HEMATOCRIT 37.7 % (34.2-44.1); HEMOGLOBIN 12.2 g/dL (12.0-16.0); LYMPHOCYTES % 33.4 % (18.0-39.1); MEAN CORPUSCULAR HEMOGLOBIN 32.4 pg (28-32); MEAN CORPUSCULAR HGB CONC 32.4 g/dL (31-35); MONOCYTES # (AUTO) 0.8 (0.2-0.8); MONOCYTES % 9.2 % (4.4-11.3); NEUTROPHILS # (AUTO) 4.8 (2.1-6.9); NEUTROPHILS % 53.6 % (38.7-80.0); PLATELET COUNT 227 x10e3/uL (140-360); RED BLOOD COUNT 3.77 x10e6/uL (3.6-5.1); RED CELL DISTRIBUTION WIDTH 14.1 % (11.7-14.4)
[2021-03-22 14:20] LABS: ALBUMIN 3.7 g/dL (3.5-5.0); ALBUMIN/GLOBULIN RATIO 0.9 (0.8-2.0); ANION GAP 16.6 mmol/L (8-16); CALCIUM 10.1 mg/dL (8.4-10.2); CHOL/HDL RATIO 2.9 (3.0-3.6); CREATININE, SERUM 1.46 mg/dL (0.57-1.11); POTASSIUM 4.6 mmol/L (3.5-5.1)
== END ==
LOC: LAB 13:23
PROVIDERS: ATTEND Internal Medicine Cardiovascular Disease
DX: I25.708 Atherosclerosis of coronary artery bypass graft(s), unspecified, with other forms of angina pectoris (principal); I65.23 Occlusion and stenosis of bilateral carotid arteries; I10 Essential (primary) hypertension
CPT/HCPCS: 36415; 80053; 80061; 85025

== ENCOUNTER → 2021-03-25 | Outpatient (CLI) | payer MEDICARE, BC ==
[~2021-03-25] MED LIST changes: +IOPAMIDOL 370 MG/ML 200 ML INFUS..BTL INJ ONE; +SODIUM CHLORIDE 0.9% 100 ML ONE
[2021-03-25 15:39] LABS: CREATININE, SERUM 1.59 mg/dL (0.57-1.11)
== END ==
LOC: CT 14:14
PROVIDERS: ATTEND Internal Medicine Cardiovascular Disease
DX: I25.708 Atherosclerosis of coronary artery bypass graft(s), unspecified, with other forms of angina pectoris (principal); I10 Essential (primary) hypertension
CPT/HCPCS: 36415; 70496; 70498; 82565; 84520; J7050; Q9967

== ENCOUNTER → 2021-09-14 | Outpatient (CLI) | payer MEDICARE, BC ==
[~2021-09-14] MED LIST changes: -IOPAMIDOL 370 MG/ML 200 ML INFUS..BTL INJ ONE; -SODIUM CHLORIDE 0.9% 100 ML ONE
== END ==
LOC: US 10:32
PROVIDERS: ATTEND Internal Medicine Nephrology
DX: N18.32 Chronic kidney disease, stage 3b (principal)
CPT/HCPCS: 76770; 76857

== ENCOUNTER 2024-01-29 16:06 | Emergency (ER) | payer MEDICARE, BC ==
[~2024-01-29] VITALS: Ht 170.2 cm; Wt 69.9 kg
[2024-01-29 16:50] LABS: BASOPHILS # (AUTO) 0.1 (0.0-0.1); BASOPHILS % 0.9 % (0.0-1.0); EOSINOPHILS # (AUTO) 0.1 (0.0-0.4); EOSINOPHILS % 2.1 % (0.0-6.0); HEMATOCRIT 36.4 % (34.2-44.1); HEMOGLOBIN 11.9 g/dL (12.0-16.0); LYMPHOCYTES # (AUTO) 0.9 (1.0-3.2); LYMPHOCYTES % 14.1 % (18.0-39.1); MEAN CORPUSCULAR HEMOGLOBIN 30.5 pg (28-32); MEAN CORPUSCULAR HGB CONC 32.7 g/dL (31-35); MEAN CORPUSCULAR VOLUME 93.3 fL (81-99); MONOCYTES # (AUTO) 1.2 (0.2-0.8); MONOCYTES % 17.3 % (4.4-11.3); NEUTROPHILS # (AUTO) 4.4 (2.1-6.9); NEUTROPHILS % 65.2 % (38.7-80.0); PLATELET COUNT 221 x10e3/uL (140-360); RED CELL DISTRIBUTION WIDTH 14.4 % (11.7-14.4); WHITE BLOOD COUNT 6.69 x10e3/uL (4.8-10.8)
[2024-01-29 17:15] LABS: ALBUMIN 3.7 g/dL (3.5-5.0); BILIRUBIN,TOTAL 0.7 mg/dL (0.2-1.2); CALCIUM 9.6 mg/dL (8.4-10.2); CREATININE, SERUM 1.58 mg/dL (0.57-1.11); TOTAL PROTEIN 7.3 g/dL (6.5-8.1)
[2024-01-29] MEDS: ACETAMINOPHEN 325 MG TAB PO ONE (17:31)
[2024-01-29] MEDS: LABETALOL HCL 5 MG/ML 20ML VIAL IV STA (17:33)
[2024-01-29 17:37] LABS: BILIRUBIN,URINE NEGATIVE (NEGATIVE); CLARITY,URINE SL CLOUDY (CLEAR); COLOR,URINE YELLOW (YELLOW); GLUCOSE, URINE NEGATIVE (NEGATIVE); KETONES,URINE NEGATIVE (NEGATIVE); LEUKOCYTE ESTERASE ,URINE NEGATIVE (NEGATIVE); NITRITE,URINE NEGATIVE (NEGATIVE); PH,URINE 5.5 (5 - 7); PROTEIN,URINE DIPSTICK NEGATIVE (NEGATIVE); URINE UROBILINOGEN 0.2 mg/dL (0.2 - 1)
[2024-01-29 17:51] LABS: EPITHELIAL CELLS,URINE FEW /LPF
[2024-01-29 18:00] VITALS: PULSE 92; RESP 16; TEMP 99.3
[2024-01-29] MEDS ORDERED: ONDANSETRON ODT4 MG PO (18:03)
[2024-01-29] MEDS: ONDANSETRON HCL INJ 2MG/ML 2ML 2 MG/ML VIAL IV STA (18:11)
[2024-01-29 18:21] VITALS: BP 154/77; PULSE 92; RESP 16; TEMP 99.3; O2SAT 100
== END 2024-01-29 18:24 | disposition home or self-care (01) ==
LOC: ER 16:34
DX: R50.9 Fever, unspecified (principal); U07.1 COVID-19; I16.0 Hypertensive urgency; R11.0 Nausea; I10 Essential (primary) hypertension; E78.5 Hyperlipidemia, unspecified; I25.10 Atherosclerotic heart disease of native coronary artery without angina pectoris; M19.09 Primary osteoarthritis, other specified site; F41.9 Anxiety disorder, unspecified; M54.9 Dorsalgia, unspecified; G89.29 Other chronic pain; Z95.1 Presence of aortocoronary bypass graft; Z85.89 Personal history of malignant neoplasm of other organs and systems
CPT/HCPCS: 36415; 70450; 71046; 80053; 81001; 85025; 87400; 99284; J2405; J3490; U0002